=== PATIENT | female | born 1985 | race Two or more races ===

== ENCOUNTER 2016-02-27 21:24 | Inpatient (IN) | payer BC, OTHER ==
[~2016-02-27] VITALS: Ht 157.5 cm; Wt 65.0 kg
[2016-02-27 22:19] LABS: Urine Bilirubin Negative (Negative); Urine Blood TRACE /uL (Negative); Urine Color Yellow (Yellow); Urine Glucose Normal (Normal); Urine Ketone TRACE (Negative); Urine Nitrite Negative (Negative); Urine RBC 5 /hpf (0 - 4); Urine Squamous Epithelial Cell MOD /hpf (<5); Urine Urobilinogen Normal (Negative)
[2016-02-27 22:29] LABS: Basophils # (auto) 0 uL; Basophils % (auto) 0.3 % (0.0-2.0); Eosinophils # (auto) 0.1 uL; Eosinophils % (auto) 0.6 % (0.0-7.0); Hemoglobin 14.5 g/dL (12.2-16.2); Lymphocytes # (auto) 1.5 uL; Lymphocytes % (auto) 11.7 % (10.0-50.0); Mean Corpuscular Hemoglobin 29.9 pg (28.0-32.0); Mean Corpuscular Hgb Conc. 33.8 g/dL (32.0-36.0); Mean Corpuscular Volume 88.7 fL (80.0-100.0); Mean Platelet Volume 9.4 fL (7.4-10.4); Monocytes # (auto) 0.6 uL; Monocytes % (auto) 4.5 % (0.0-12.0); Neutrophils # (auto) 10.9 uL; Neutrophils % (auto) 82.9 % (37.0-80.0); Platelet Count (auto) 284 10^3/uL (140-450); Red Cell Distribution Width 12.6 % (11.6-16.0); White Blood Cell 13.2 10^3/uL (4.4-10.8)
[2016-02-27 22:40] LABS: Albumin 3.9 g/dL (3.4-5.0); BUN/Creatinine Ratio 20.8; Bilirubin, Total 0.4 mg/dL (0.2-1.0); Calcium 8.9 mg/dL (8.5-10.1); Potassium 3.5 mmol/L (3.5-5.1); Total Protein 7.4 g/dL (6.4-8.2)
[2016-02-27] MEDS ORDERED: SODIUM CHLORIDE 0.9% 1,000 ML IV ONE (23:45)
[2016-02-27] MEDS ORDERED: ONDANSETRON HCL 4 MG/2 ML VIAL IV ONE (23:45)
[2016-02-27] MEDS ORDERED: HYDROmorphone HCL 2 MG/ML VL IV ONE (23:45)
[2016-02-28] MEDS ORDERED: cefTRIAXone 1GM/50ML D5W 50 ML IV ONE (00:45)
[2016-02-28] MEDS ORDERED: ONDANSETRON HCL 4 MG/2 ML VIAL ONE ×2 (00:49→16:59)
[2016-02-28] MEDS ORDERED: ONDANSETRON HCL 4 MG/2 ML VIAL IV ONE ×2 (01:00→17:00)
[2016-02-28] MEDS ORDERED: HYDROcodone-ACET 5/325MG TAB PO PRN (01:45)
[2016-02-28] MEDS ORDERED: ACETAMINOPHEN 325 MG TAB PO PRN ×2 (01:45→17:15)
[2016-02-28] MEDS ORDERED: MORPHINE SULF INJ 2 MG/ML SYRINGE 1ML IV PRN (01:45)
[2016-02-28] MEDS ORDERED: PANTOPRAZOLE SODIUM 40 MG/10 ML VIAL IV ONE (01:45)
[2016-02-28] MEDS ORDERED: D5W/SOD CHL 0.45% 1,000 ML IV SCH (01:45)
[2016-02-28] MEDS: metroNIDAZOLE 250MG/50 ML 50 ML IV SCH ×3 (02:00→19:35)
[2016-02-28 02:55] LABS: Partial Thromboplastin Time 23.9 sec (22.64-33.71); Prothrombin Time 10.3 sec (9.37-12.3)
[2016-02-28] MEDS ORDERED: MORPHINE SULFATE 4 MG/ML SYRG IV PRN (03:30)
[2016-02-28] MEDS: ONDANSETRON HCL 4 MG/2 ML VIAL IV PRN ×2 (03:39→09:02)
[2016-02-28] MEDS ORDERED: metroNIDAZOLE 500MG/100ML 100 ML IV ONE (03:46)
[2016-02-28] MEDS ORDERED: HYDROmorphone HCL 2 MG/ML VL IV ONE ×3 (04:30→06:45)
[2016-02-28] MEDS ORDERED: HYDROmorphone HCL 2 MG/ML VL IV PRN ×3 (05:15→17:15)
[2016-02-28] MEDS ORDERED: PANTOPRAZOLE SODIUM 40 MG/10 ML VIAL IV SCH (10:00)
[2016-02-28 10:32] VITALS: BP 116/61
[2016-02-28] MEDS ORDERED: ceFAZolin 1GM/50ML D5W 50 ML IV ONE (11:34)
[2016-02-28] MEDS ORDERED: GLYCOPYRROLATE 0.2 MG/ML 1ML VIAL IV ONE (14:53)
[2016-02-28] MEDS ORDERED: ROCURONIUM 10MG/ML 10ML VIAL IV ONE (14:53)
[2016-02-28] MEDS ORDERED: fentaNYL CITRATE 5 ML ONE (14:53)
[2016-02-28] MEDS ORDERED: NEOSTIGMINE 1 MG/ML INJ (10mg/10ML VIAL) IV ONE (14:53)
[2016-02-28] MEDS ORDERED: PROPOFOL 10 MG/ML 20 ML IV ONE (14:53)
[2016-02-28] MEDS ORDERED: DEXAMETHASONE SOD PHOS 10MG/1ML VIAL INJ IV ONE (14:53)
[2016-02-28] MEDS ORDERED: MIDAZOLAM HCL 1MG/1ML-2 ML VIAL ONE (14:53)
[2016-02-28] MEDS ORDERED: HYDROmorphone HCL 2 MG/ML VL ONE ×2 (15:39→17:00)
[2016-02-28] MEDS ORDERED: hydrALAZINE HCL 20 MG/ML VL IV PRN (17:00)
[2016-02-28] MEDS ORDERED: ePHEDrine SULFATE 50 MG/ML AMP IV PRN (17:00)
[2016-02-28] MEDS ORDERED: ONDANSETRON HCL 4 MG/2 ML VIAL IV PRN (17:15)
[2016-02-28] MEDS: HYDROcodone-ACET 5/325MG TAB PO PRN (20:12)
[2016-02-28 22:00] VITALS: BP 96/60
[2016-02-29] MEDS ORDERED: cefTRIAXone 1GM/50ML D5W 50 ML IV SCH (01:00)
[2016-02-29] MEDS: cefTRIAXone 1GM/50ML D5W 50 ML IV SCH (01:03)
[2016-02-29] MEDS: D5W/SOD CHL 0.45% 1,000 ML IV SCH ×2 (01:45→15:05)
[2016-02-29] MEDS: metroNIDAZOLE 250MG/50 ML 50 ML IV SCH ×3 (02:58→17:57)
[2016-02-29] MEDS: HYDROcodone-ACET 5/325MG TAB PO PRN ×2 (03:05→17:56)
[2016-02-29 05:30] VITALS: BP 102/53
[2016-02-29 06:11] LABS: Basophils # (auto) 0 uL; Eosinophils # (auto) 0 uL; Hematocrit 35.7 % (36.0-46.0); Lymphocytes # (auto) 0.7 uL; Lymphocytes % (auto) 6.8 % (10.0-50.0); Mean Corpuscular Hemoglobin 29.9 pg (28.0-32.0); Mean Corpuscular Hgb Conc. 33.6 g/dL (32.0-36.0); Mean Corpuscular Volume 88.8 fL (80.0-100.0); Mean Platelet Volume 9.9 fL (7.4-10.4); Monocytes # (auto) 0.6 uL; Monocytes % (auto) 5.3 % (0.0-12.0); Neutrophils # (auto) 9.2 uL; Neutrophils % (auto) 87.9 % (37.0-80.0); Platelet Count (auto) 258 10^3/uL (140-450); Red Cell Distribution Width 12.2 % (11.6-16.0); White Blood Cell 10.5 10^3/uL (4.4-10.8)
[2016-02-29 06:47] LABS: Bilirubin, Total 0.5 mg/dL (0.2-1.0); Calcium 7.7 mg/dL (8.5-10.1); Potassium 3.7 mmol/L (3.5-5.1); Total Protein 5.8 g/dL (6.4-8.2)
[2016-02-29 09:29] VITALS: BP 109/70
[2016-02-29] MEDS: PANTOPRAZOLE SODIUM 40 MG/10 ML VIAL IV SCH (12:04)
[2016-02-29 12:40] VITALS: BP 108/62
[2016-02-29 16:00] VITALS: BP 108/67
[2016-02-29 22:00] VITALS: BP 108/69
[2016-03-01] MEDS: cefTRIAXone 1GM/50ML D5W 50 ML IV SCH (01:14)
[2016-03-01] MEDS: metroNIDAZOLE 250MG/50 ML 50 ML IV SCH ×2 (02:30→08:19)
[2016-03-01] MEDS: D5W/SOD CHL 0.45% 1,000 ML IV SCH ×2 (04:25→06:53)
[2016-03-01 05:07] VITALS: BP 105/78
[2016-03-01 06:14] LABS: Basophils # (auto) 0 uL; Basophils % (auto) 0.3 % (0.0-2.0); Eosinophils # (auto) 0 uL; Eosinophils % (auto) 0.6 % (0.0-7.0); Hematocrit 36.2 % (36.0-46.0); Hemoglobin 12.1 g/dL (12.2-16.2); Lymphocytes # (auto) 1.8 uL; Lymphocytes % (auto) 26.9 % (10.0-50.0); Mean Corpuscular Hemoglobin 29.8 pg (28.0-32.0); Mean Corpuscular Hgb Conc. 33.3 g/dL (32.0-36.0); Mean Corpuscular Volume 89.4 fL (80.0-100.0); Mean Platelet Volume 9.2 fL (7.4-10.4); Monocytes # (auto) 0.5 uL; Monocytes % (auto) 7.8 % (0.0-12.0); Neutrophils # (auto) 4.3 uL; Neutrophils % (auto) 64.4 % (37.0-80.0); Platelet Count (auto) 244 10^3/uL (140-450); Red Cell Distribution Width 12.4 % (11.6-16.0); White Blood Cell 6.7 10^3/uL (4.4-10.8)
[2016-03-01 06:47] LABS: Albumin 2.9 g/dL (3.4-5.0); BUN/Creatinine Ratio 11.1; Bilirubin, Total 0.3 mg/dL (0.2-1.0); Calcium 8.1 mg/dL (8.5-10.1); Potassium 3.5 mmol/L (3.5-5.1); Total Protein 5.8 g/dL (6.4-8.2)
[2016-03-01] MEDS: PANTOPRAZOLE SODIUM 40 MG/10 ML VIAL IV SCH (08:19)
[2016-03-01 09:00] VITALS: BP 113/67
[2016-03-01 10:00] VITALS: BP 113/67
== END 2016-03-01 11:30 | disposition home or self-care (01) | DRG 418 ==
LOC: ER 21:27 → OVERFLOW 21:28 → EAST 02-28 10:49 → WEST WING 02-28 18:34
PROVIDERS: ADMIT Internal Medicine; ATTEND Internal Medicine
PROC: 0FT44ZZ Resection of Gallbladder, Percutaneous Endoscopic Approach (ICD-10-PCS; principal; 2016-02-28 14:53)
DX: K80.00 Calculus of gallbladder with acute cholecystitis without obstruction (principal); N39.0 Urinary tract infection, site not specified; D72.829 Elevated white blood cell count, unspecified
CPT/HCPCS: 36415; 71010; 76705; 80053; 81001; 81025; 82150; 83690; 84702; 85025; 85610; 85730; 86850; 86900; 86901; 87040; 87086; 96361; 96365; 96367; 96375; 96376; C9113; J0690; J0696; J1100; J2250; J2405; J2704; J3490